=== PATIENT | male | born 1940 ===

== ENCOUNTER 2017-01-05 07:45 | Day surgery (SDC) | payer MEDICARE ==
[2017-01-05] MEDS ORDERED: LIDOCAINE 2%-EPI 1:100,000 20 ML VIAL MC ONE (07:46)
[2017-01-05] MEDS ORDERED: PROPOFOL 200 MG/20 ML BOTTLE IV ONE (07:46)
[2017-01-05] MEDS ORDERED: SEVOFLURANE 250 ML BOTTLE IH ONE (07:46)
[2017-01-05] MEDS ORDERED: ONDANSETRON 4 MG/2 ML VIAL IV ONE (07:46)
[2017-01-05] MEDS ORDERED: CEFAZOLIN 1 G VIAL MC ONE (07:46)
[2017-01-05] MEDS ORDERED: POLYMYXIN B SULFATE 500,000 UNITS, BACITRACIN 50,000 UNITS, NORMAL SALINE 20 ML MC ONE ×3 (10:15)
[2017-01-05] MEDS ORDERED: MIDAZOLAM HCL 2 MG/2 ML VIAL ONE (10:41)
[2017-01-05] MEDS ORDERED: FENTANYL CITRATE 100 MCG/2 ML AMPUL ONE (10:41)
[2017-01-05] MEDS ORDERED: BUPIVACAINE 0.25% 30 ML VIAL ONE (11:09)
[2017-01-05] MEDS ORDERED: BUPIVACAINE PF 0.5% 30 ML VIAL ONE (11:32)
== END 2017-01-05 13:40 | disposition home or self-care (01) ==
LOC: DS 07:45
PROVIDERS: ATTEND Orthopaedic Surgery
DX: D18.09 Hemangioma of other sites (principal); I25.10 Atherosclerotic heart disease of native coronary artery without angina pectoris; N40.0 Benign prostatic hyperplasia without lower urinary tract symptoms; Z95.1 Presence of aortocoronary bypass graft; Z98.890 Other specified postprocedural states; E66.01 Morbid (severe) obesity due to excess calories; Z87.891 Personal history of nicotine dependence
CPT/HCPCS: 24071; A4663; J0690; J2250; J2405; J3010; J3490 ×5; J7120 ×2